=== PATIENT | male | born 1995 | race Caucasian/White ===

== ENCOUNTER 2021-12-01 02:06 | Emergency (ER) | payer BC, SELFPAY ==
[2021-12-01 02:07] VITALS: BP 146/106; PULSE 108; RESP 19; TEMP 36.4; O2SAT 99; BMI 35.3
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
[2021-12-01] MEDS: 0.9% Normal Saline 1,000 ML 999 ML IV (02:28)
[2021-12-01] MEDS: Ondansetron 4 MG/2 ML Vial IV (02:29)
[2021-12-01] MEDS: Morphine 4 MG/ML Syringe IV ×2 (02:29→04:04)
[2021-12-01] MEDS: Diphth,Pertuss(Acell),Tet Vac 0.5 ML Vial IM (02:29)
[2021-12-01 02:36] LABS: Absolute Lymphocyte Count 4.13 X10^3/uL (0.83-4.51); Absolute Neutrophil Count 7.9 X10^3/uL (2.0-7.7); Basophil# 0.07 X10^3/uL; Basophil% 0.5 % (0-1); Eosinophil# 0.15 X10^3/uL; Eosinophils% 1.2 % (0-5); Hemoglobin 16.6 g/dL (13.0-16.5); Lymphocyte # 4.13 X10^3/ul (0.83-4.51); Lymphocyte % 31.9 % (19-41); Mean Corp Hgb Conc 36.1 g/dL (32-36); Mean Corpuscular Hgb 31.8 pg (27.0-32.0); Mean Corpuscular Volume 88.1 fL (80-94); Mean Platelet Vol. 10.4 fl (6.2-12.0); Monocyte% 4.6 % (0-10); NRBC Flagged by Analyzer 0 % (0-5); Neutrophil # 7.89 X10^3/uL (2.7-7.7); Neutrophil % 61.1 % (47-70); Platelet Count 305 K/mm3 (150-450); RBC Distribution Width CV 12.1 % (11.6-14.6); RBC Distribution Width SD 38.6 fl (35.1-43.9); Red Blood Count 5.22 M/mm3 (4.6-6.2); White Blood Count 12.9 K/mm3 (4.4-11.0)
[2021-12-01 02:45] LABS: Prothrombin Time (Protime)PT. 12.9 SECONDS (11.7-14.9)
[2021-12-01 02:46] LABS: Partial Thromboplast Time 22.8 Seconds (24.1-36.2)
[2021-12-01 02:53] LABS: ALB/GLOB Ratio 1.2 RATIO (0.9-2.4); AST(SGOT) 72 U/L (15-37); Alanine Aminotransfer ALT/SGPT 103 U/L (16-61); Albumin, Serum 3.9 g/dL (3.2-5.0); Alkaline Phosphatase 78 U/L (45-117); Anion Gap 6 (5-15); BUN 19 mg/dL (7-18); BUN/Creat Ratio 12.6 RATIO (10-20); Chloride 107 mmol/L (98-107); Creatinine, Serum 1.51 mg/dL (0.70-1.30); EST Glomerular Filtration Rate 60 mL/min (>60); Est Glom Filt Rate - Afr Amer 72 mL/min (>60); Estimated Creatinine Clearance 91.02 ml/min; Globulin 3.3 g/dL (2.2-4.2); Glucose 110 mg/dL (74-106); Potassium 3.5 mmol/L (3.5-5.1); Protein, Total 7.2 g/dL (6.4-8.2); Sodium Level 138 mmol/L (136-145)
[2021-12-01 02:55] LABS: Alcohol, Blood (Medical)-Serum < 3.0 mg/dL
[2021-12-01 03:28] LABS: Mucous, Urine 0 SEEN /hpf (<or=2+); Red Blood Cells-Urine 0 SEEN /hpf (0-5); Squamous Epithelial Cells - UA 0 SEEN /hpf (0-5)
[2021-12-01 03:36] LABS: Color, Urine Yellow (Yellow); Glucose, Dipstick Normal (Normal); Ketone-Dipstick Negative (Negative); Leukocyte Esterase-Dipstick Negative /ul (Negative); Nitrite-Dipstick Negative (Negative); Occult Blood-Urine 150 /ul (Negative); Protein-Dipstick 100 mg/dl (Negative); Urine Bilirubin Dipstick Negative (Negative); Urine Clarity Clear (Clear); Urine Urobilinogen Normal (Normal)
[2021-12-01 03:54] LABS: Amphetamine Urine VISTA NEGATIVE (<1000 ng/mL); Barbiturate Urine VISTA NEGATIVE (< 200 ng/mL); Benzodiazepine Urine VISTA NEGATIVE (< 200 ng/mL); Cocaine Urine VISTA NEGATIVE (< 300 ng/mL); Ecstacy Urine VISTA NEGATIVE (< 500 ng/mL); Methadone Urine VISTA NEGATIVE (< 300 ng/mL); PCP Urine VISTA NEGATIVE (< 25 ng/mL); THC Urine VISTA NEGATIVE (< 50 ng/mL); Vista UDS pH Range 6
[2021-12-01] MEDS: Lidocaine 1% (20 ml mdv) 20 ML Vial INFILT (04:04)
[2021-12-01 04:16] LABS: White Blood Cells 10-25 SEEN /hpf (0-5)
[2021-12-01 04:17] LABS: Bacteria RARE /hpf (None Seen)
[2021-12-01 05:02] VITALS: BP 149/87; PULSE 104; RESP 20; O2SAT 98
== END 2021-12-01 05:04 | disposition home or self-care (01) ==
PROVIDERS: Emergency Provider Emergency Medicine; PCP Nurse Practitioner Family; Visit Provider Emergency Medicine
DX: S01.01XA Laceration without foreign body of scalp, initial encounter (principal); S30.1XXA Contusion of abdominal wall, initial encounter; S70.11XA Contusion of right thigh, initial encounter; F17.290 Nicotine dependence, other tobacco product, uncomplicated; E66.9 Obesity, unspecified; Y92.410 Unspecified street and highway as the place of occurrence of the external cause; Z23 Encounter for immunization; V49.9XXA Car occupant (driver) (passenger) injured in unspecified traffic accident, initial encounter
CPT/HCPCS: 12001; 70450; 71260; 72125; 74177; 80053; 80307; 81001; 82077; 85025; 85610; 85730; 90471; 90715; 96374; 96375; 96376; 99285; J7030; Q9967; A4216; J2405

== ENCOUNTER 2022-12-26 08:23 | Emergency (ER) | payer OTHER, SELFPAY ==
[2022-12-26 08:23] VITALS: BP 152/106; PULSE 101; RESP 16; TEMP 36.4; O2SAT 97; BMI 34.3
--- NOTE | 2022-12-26 10:03 | EX.ED.SAOD ---
HPI History of Present Illness Chief Complaint: Substance Abuse Informant: patient Narrative Narrative: Patient presenting for alcohol detox. States he has been drinking for the past 10 days, he was sober for over 2 weeks prior to that but has had episodes of heavy drinking prior to this. Never been in inpatient alcohol detox but is following with 180 as an outpatient for alcohol use. He states his last drink was yesterday around 1 or 2 PM. He has felt poorly, but has had no other symptoms until yesterday he developed some diarrhea, so he stopped drinking, he vomited once and had some epigastric discomfort. He went to the ER in [place] yesterday evening, had some fluids and blood work and was discharged with a prescription for Zofran. States this morning still feels poorly, he has had a little nausea but no vomiting today, no abdominal discomfort, he does not feel shaky, he feels stressed but not overly anxious or suicidal. States he is concerned that he is in alcohol withdrawal. He does not use any other substances. He started drinking 10 days ago because he had been on Prozac for 3 weeks which is a new medication for him, and he did not like the way it was making him feel and he stopped it and felt like maybe he was withdrawing from it so he started drinking to try to help with that. 1 day he drank 18 drinks, which is a combination of cans of beer, white claw, and small shooter/shots of fireball low proof whiskey. That was 2 or 3 days ago, and yesterday he had 3 or 4 drinks total, stopping at around 1 or 2 PM, it now is 9:30 AM the next day. [facility] Medical History (Updated 12/26/22 @ 11:[address] Juan Manuel Stanley MD) Anxiety Medical History no medical history Home Medications albuterol sulfate 90 mcg/actuation aerosol inhaler (ProAir HFA) 1 - 2 puff inhalation Q6H PRN shortness of breath or wheezing #8.5 grams 12/13/19 [Rx Last Taken Unknown] benzonatate 100 mg capsule (Tessaljoselyn [place]) 100 mg PO TID PRN cough #30 caps 12/13/19 [Rx Last Taken Unknown] oxycodone-acetaminophen 5 mg-325 mg tablet 1 tab PO Q6H PRN PRN pain 5 days #20 TABLETS 12/01/21 [Rx Last Taken Unknown] Allergy/AdvReac Type Severity Reaction Status Date / Time No Known Allergies Allergy Verified 12/26/22 08:26 Social History Smoking Status: Current every day smoker tobacco type: e-cigarettes alcohol intake: current ROS ROS ED Constitutional Constitutional ED: Reports malaise; Denies chills or fever(s) Eyes Eyes: Denies change in vision or diplopia ENT ENT ED: Denies rhinorrhea or sore throat Cardiovascular Cardiovascular: Denies chest pain or palpitations Respiratory/Chest Respiratory/Chest: Denies cough or dyspnea Gastrointestinal Gastrointestinal: Reports diarrhea, nausea and vomiting; Denies abdominal pain Genitourinary Genitourinary ED: Denies dysuria or hematuria Musculoskeletal Musculoskeletal: Denies back pain or neck pain Integumentary Denies abscess or rash Neurologic Neurologic: Denies headache(s), paresthesias or weakness Psychiatric Psychiatric: Reports anxiety; Denies suicidal thoughts EXAM Physical Exam Const Vital Signs: 12/26/22 08:23 Temperature 97.6 F L Temperature Source Temporal Pulse Rate 101 H Respiratory Rate 16 Blood Pressure 152/106 H Blood Pressure Mean 121 Pulse Ox 97 Oxygen Delivery Method Room Air Positive well nourished and well developed Constitutional Narrative: Well-appearing, conversive in full sentences, not shaky or tremulous General Appearance ED: well developed and NAD HEENT Reports moist mucous membranes normocephalic and atraumatic Eyes PERRL and EOMs intact bilaterally Neck full ROM and supple Resp normal respiratory effort and clear to auscultation bilaterally Cardio regular rate, regular rhythm and no murmurs Rate: Negative for tachycardic GI soft to palpation, non-tender and non-distended Auscultation: normoactive bowel sounds Back/Spine no CVA tenderness General Back: other FROM Extremity normal to inspection General Extremety ED: Negative for edema, pulses abnormal or tenderness General Extremity: Negative for edema or pulses abnormal Neuro oriented x3, CN's II-XII intact bilaterally and no sensory deficits noted Sensorium / Orientation: awake and alert Motor Exam: strength 5/5 throughout Psych mental status grossly normal and thought process normal Skin no rashes or lesions noted and no wounds MDM MDM MDM Narrative Medical decision making narrative: Patient is a little hypertensive, he states that number is not unusual for him, even before all of this. He is not tachycardic does not appear tremulous not having any diffuse abdominal cramping, and clinically I do not think he is in acute alcohol withdrawal. He looks well. He states that he stopped drinking yesterday, he may have a virus that is causing his gastro symptoms there is been a high prevalence of that in the community and the CDC warning concerning norovirus throughout the country recently, and he is in agreement, and I do not think this is necessarily related to alcohol use/withdrawal. He has only been drinking for a little over 1 week steadily, and he does not appear to be in any life threat right now. I think outpatient treatment is appropriate here. He states he does not want to be in the hospital if he does not need to be medically, he is not concerned about the availability of alcohol and states that he can stop, he did yesterday. Did have social work stop by and speak with the patient. He actually wants to see our behavioral health folks in follow-up, he feels like if he takes care of his anxiety issues that he will not need to drink anymore and he does not feel like he needs alcohol rehab as an outpatient. Resources given and discharged to follow-up. We discussed reasons to return. Discharge Plan Triage Chief Complaint: Substance Abuse ED Provider: Juan Manuel Stanley Dx/Rx/DC Orders Clinical Impression: Vomiting and diarrhea, Alcohol abuse, Anxiety Instructions: ED Withdrawal Alcohol, ED Vomiting and Diarrhea ... Prescriptions: No Action albuterol sulfate [ProAir HFA] 90 mcg/actuation HFA aerosol inhaler 1 - 2 puff inhalation Q6H PRN (Reason: shortness of breath or wheezing) Qty: 8.5 1RF benzonatate [Tessalon Perles] 100 mg capsule 100 mg PO TID PRN (Reason: cough) Qty: 30 0RF oxycodone-acetaminophen [oxycodone-acetaminophen] 1 TABLET tablet 1 tab PO Q6H PRN PRN (Reason: pain) 5 Days Qty: 20 0RF Primary Care Provider: Care Physician,No Primary Referrals: [facility] [Provider Group] Activity Restrictions/Additional Instructions: We do not think you are in acute alcohol withdrawal right now, but see the following instructions for more information regarding it. Disposition Disposition: Home, Self Care
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
[2022-12-26 11:29] VITALS: BP 145/88; PULSE 95; RESP 18
== END 2022-12-26 11:30 | disposition home or self-care (01) ==
PROVIDERS: Emergency Provider Emergency Medicine; Visit Provider Emergency Medicine
DX: R11.10 Vomiting, unspecified (principal); R19.7 Diarrhea, unspecified; F10.10 Alcohol abuse, uncomplicated; F41.9 Anxiety disorder, unspecified; F17.290 Nicotine dependence, other tobacco product, uncomplicated
CPT/HCPCS: 99284